=== PATIENT | female | born 1960 | race Caucasian/White ===

== ENCOUNTER → 2023-10-19 | Outpatient (CLI) | payer SELFPAY ==
--- NOTE | 2023-10-19 11:57 | P.GSHP ---
History of Present Illness H&P Date: 10/19/23 Chief Complaint: pain left breast Shilpi is a 63 year old female seen in consultation for Dr. Ramirez regarding pain in her left breast. She had a bilateral mammogram on 07-19-23 which was BIRAD 2. She also had a left breast ultrasound on 08-25-23 which was BIRAD 3 follow up in 6 months. This showed a prominate lymph node with a 4 mm cortex. She developed pain in her left upper outer breast in March 2023, her mammogram was BIRAD 2 but secondary to the soreness she got an ultrasound. She was then told to come and see us. The pain has since resolved. The patient at this time does not feel any lumps masses or nodules of concern in either breast. She's never had any surgery on her breast. She is not complaining of any nipple discharge or skin changes. The pain started after she lifted a heavy suitcase with her left arm. Caffiene: 2 cups YETI cup/day nicotine: none chocolate: weekly BCP: 5-10 years in remote past Family History: none of cancer Hormonal history: Menarche: 13 , breast fed: yes, age at first 19 menopause: hysterectomy in 2005; at the age of 45 done for fibroids, left ovaries hormones: none Surgical history: Hysterectomy Gastric sleeve in 2019 lost 120 pounds tonsil bilateral cataract surgery acute angle glaucoma Medical History: hypothryoid Rheumatoid arthritis Social history: Nicotine: Negative Alcohol: Occasional Drugs: Negative - Constitutional Constitutional: Denies chills, Denies fever - EENT Comment: cataract surgery, left eye acute angle glaucoma Eyes: denies blurred vision, denies pain Ears: bilateral: tinnitus Ears, nose, mouth and throat: Denies headache, Denies sore throat - Breasts Breasts: bilateral: as per HPI - Cardiovascular Cardiovascular: Denies chest pain, Denies shortness of breath - Respiratory Respiratory: Denies cough, Denies 7 - Gastrointestinal Gastrointestinal: Denies abdominal pain, Denies diarrhea, Denies nausea, Denies vomiting - Genitourinary (Female) Genitourinary: Denies dysuria, Denies hematuria - Menstruation Menstruation: Reports post hysterectomy - Musculoskeletal Musculoskeletal: Reports myalgias - Integumentary Integumentary: Denies pruritus, Denies rash - Neurological Neurological: Denies numbness, Denies weakness - Psychiatric Psychiatric: Denies anxiety, Denies depression - Endocrine Endocrine: Denies fatigue, Denies weight change - Hematologic/Lymphatic Comment: none - Allergic/Immunologic Allergic/Immunologic: Reports seasonal allergies Medications and Allergies Home Medications Medication Instructions Recorded Confirmed Type Cholecalciferol [Vitamin D3 (25 25 mcg PO DAILY 10/19/23 10/19/23 History Mcg = 1000 Iu)] Folic Acid 1 mg PO DAILY 10/19/23 10/19/23 History Levothyroxine Sodium [Synthroid] 25 mcg PO DAILY 10/19/23 10/19/23 History Magnesium 200 mg PO DAILY 10/19/23 10/19/23 History Zinc Gluconate [Zinc] 50 mg PO DAILY 10/19/23 10/19/23 History metHOTREXate sodium [Methotrexate] 15 mg PO Q7D 10/19/23 10/19/23 History Allergies Allergy/AdvReac Type Severity Reaction Status Date / Time Penicillins AdvReac Rash/Hives Unverified 10/19/23 11:33 Surgical - Exam - General no distress - Eyes normal ocular movement - Neck trachea midline - Respiratory normal respiratory effort, clear to auscultation - Cardiovascular Rhythm: regular Heart Sounds: normal: S1, S2 - Abdomen Abdomen: soft, non tender, no guarding, no rigid, no rebound - Integumentary normal turgor - Neurologic no disoriented, no combative - Musculoskeletal normal gait, normal posture - Psychiatric oriented to time, oriented to person, oriented to place, speech is normal, memory intact Breast Exam: BRA: 36DD Inspection: Bilateral grade 2/3 ptosis Right breast: Multi-positional exam fibrocystic changes no dominant masses or nodules of concern, right breast larger than left breast Right axilla: No adenopathy of concern Left breast: Multiple positional exam fibrocystic changes, in the upper mid breast at approximately 12:00 closer to the chest wall there is some mild increased nodularity Left axilla: No adenopathy of concern Results Mammogram and ultrasound results reviewed Assessment and Plan Assessment: Impression: Fibrocystic breast changes Mastodynia left breast resolved Slight increased nodularity upper outer quadrant area left breast which has been marked and ultrasound will be obtained of this area Plan: Ultrasound left breast over area of concern If the ultrasound does not show any lesions of concern will see the patient again in 4 months for close surveillance; discussed core needle biopsy of palpable change however at this time she would like to be watched closely Bilateral mammogram in July CC: Dr. Ramirez
== END ==
LOC: WWCWWP 10:19
PROVIDERS: ATTEND Surgery
DX: N60.12 Diffuse cystic mastopathy of left breast (principal); M06.9 Rheumatoid arthritis, unspecified; N60.19 Diffuse cystic mastopathy of unspecified breast; N63.21 Unspecified lump in the left breast, upper outer quadrant; N64.4 Mastodynia; Z79.890 Hormone replacement therapy; Z88.0 Allergy status to penicillin; Z90.710 Acquired absence of both cervix and uterus; Z98.84 Bariatric surgery status

== ENCOUNTER → 2023-10-19 | Outpatient (CLI) | payer SELFPAY ==
--- NOTE | 2023-10-19 12:22 | USB ---
Reason for Exam: Clinical finding. Risk Values: Gretel 5 year model risk: 1.0%. NCI Lifetime model risk: 4.6%. Technique: Method: Targeted. Findings: The upper section of the breast of the left breast, the area of palpable concern of the left breast and the axilla of the left breast were scanned. Targeted ultrasound superior aspect of the left breast at the patient's palpable site. Scanning was performed from 11:00 to 1:00 including the subareolar region and axilla. No solid or cystic lesion. A thickened lymph node in the left axilla measuring 2.2 x 0.8 cm remains unchanged for 2 months. Mild cortical thickening up to 4 mm is also similar. Ongoing short interval follow-up recommended. Overall Assessment: Probably benign, BI-RAD 3 Management: Diagnostic Mammogram of the left breast in 4 months. Diagnostic Breast Ultrasound of the left breast in 4 months. To reassess the left axillary lymph node and patient palpated site This exam should not preclude additional follow-up of suspicious palpable abnormalities. Results were given to the patient verbally at the time of exam. Electronically signed and approved by: Sonam Dominguez M.D. Radiologist
== END | disposition home or self-care (01) ==
LOC: RADUSWWP 12:00
PROVIDERS: ATTEND Surgery
DX: N63.20 Unspecified lump in the left breast, unspecified quadrant (principal)

== ENCOUNTER → 2024-08-22 | Outpatient (CLI) | payer BC ==
--- NOTE | 2024-08-22 10:10 | MM ---
Reason for Exam: Clinical finding. Last mammogram was performed 1 year(s) and 1 month(s) ago. Risk Values: Gretel 5 year model risk: 1.0%. NCI Lifetime model risk: 4.6%. Tissue Density: The breasts are heterogeneously dense, which may obscure small masses. Findings: Analyzed By CAD. No distinct mass or distortion. No suspicious calcifications. Overall Assessment: Benign, BI-RAD 2 Management: Screening Mammogram of both breasts in 1 year. . Results were given to the patient verbally at the time of exam. Patient should continue monthly self-breast exams. A clinical breast exam by your physician is recommended on an annual basis. This exam should not preclude additional follow-up of suspicious palpable abnormalities. Note on Gretel scores and lifetime risk: 1. A Gretel score greater than 3% is considered moderate risk. If this is the case, consider specialist referral to assess eligibility for a risk reducing agent. 2. If overall lifetime risk for the development of breast cancer is 20% or higher, the patient may qualify for future screening with alternating mammogram and breast MRI. [facility], , 08/22/2024 10:08 AM. Electronically signed and approved by: Ariel Zepeda M.D. Radiologis
== END | disposition home or self-care (01) ==
LOC: RADMAMWWP 09:44
PROVIDERS: ATTEND Internal Medicine
DX: R92.8 Other abnormal and inconclusive findings on diagnostic imaging of breast (principal); R92.333 Mammographic heterogeneous density, bilateral breasts
CPT/HCPCS: 77062; 77066